=== PATIENT | male | born 1990 | race Caucasian/White ===

== ENCOUNTER 2017-07-30 14:27 | Emergency (ER) | payer OTHER ==
[~2017-07-30] VITALS: Ht 167.6 cm; Wt 79.4 kg
[2017-07-30] MEDS ORDERED: IBUPROFEN 600600 M1 PO (15:12)
[2017-07-30] MEDS ORDERED: KEFLEX500 M1 PO (15:12)
[2017-07-30 16:02] VITALS: BP 141/88
== END 2017-07-30 16:02 | disposition home or self-care (01) ==
LOC: ER 14:27
DX: S61.214A Laceration without foreign body of right ring finger without damage to nail, initial encounter (principal); W26.8XXA Contact with other sharp object(s), not elsewhere classified, initial encounter; Y92.89 Other specified places as the place of occurrence of the external cause; Y93.89 Activity, other specified; Y99.8 Other external cause status